=== PATIENT | female | born 1980 | race Caucasian/White ===

== ENCOUNTER 2018-09-08 10:50 | Emergency (ER) | payer OTHER ==
[2018-09-08 11:06] VITALS: BMI 27.1
[2018-09-08] MEDS ORDERED: SODIUM CHLORIDE 1,000 ML IV SCH (11:15)
--- NOTE | 2018-09-08 11:21 | PDOC ---
History of Present Illness - History of Present Illness Initial Comments: 09/08/18 12:56 The patient is a 37 year old female, with a significant past medical history , who presents to the emergency department with complaint of chest tightness, SOB , and tingling fingers at 10am while seated at her desk to do homework. She denies any preceding symptoms. She denies having any prior episodes like this. She states she had some nasal congestion this week. She denies any other symptoms. She denies recent travels. The patient denies headache and dizziness. The patient denies fever, chills, nausea, vomit, diarrhea and constipation. The patient denies dysuria, frequency , urgency and hematuria. Allergies: NDKA <Elizabeth Francisco - Last Filed: 09/08/18 12:56> - General History Source: Patient Exam Limitations: No Limitations <Elmira Cannon - Last Filed: 09/09/18 08:31> - General Chief Complaint: Shortness of Breath Stated Complaint: DIFFICULTY BREATHING Time Seen by Provider: 09/08/18 11:20 Past History <Elizabeth Francisco - Last Filed: 09/08/18 12:56> - Past Medical History COPD: No - Suicide/Smoking/Psychosocial Hx Smoking History: Never smoked Have you smoked in the past 12 months: No Number of Cigarettes Smoked Daily: 0 Information on smoking cessation initiated: No 'Breaking Loose' booklet given: 05/10/16 Hx Alcohol Use: No Drug/Substance Use Hx: No Substance Use Type: None <Elmira Cannon - Last Filed: 09/09/18 08:31> - Past Medical History Allergies/Adverse Reactions: Allergies Allergy/AdvReac Type Severity Reaction Status Date / Time No Known Allergies Allergy Verified 09/08/18 10:53 Home Medications: Ambulatory Orders Amoxicillin/Potassium Clav [Augmentin 875-125 Tablet] 1 each PO BID #20 tablet 05/10/16 Review of Systems - Review of Systems Able to Perform ROS?: Yes Comments:: 09/08/18 12:57 CONSTITUTIONAL: Absent: fever, no chills, no fatigue EYES: Absent: visual changes ENT: Absent: ear pain, no sore throat CARDIOVASCULAR: (+) chest tightness. Absent:no palpitations RESPIRATORY: (+) SOB. Absent: cough, GASTROINTESTINAL: Absent: abdominal pain, no nausea, no vomiting, no constipation, no diarrhea GENITOURINARY: Absent: dysuria, no frequency, no hematuria MUSCULOSKELETAL: Absent: back pain, no arthralgia, no myalgia SKIN: Absent: rash NEURO: (+) finger tingling. Absent: headache <Elizabeth Francisco - Last Filed: 09/08/18 12:56> *Physical Exam - Vital Signs Last Vital Signs Temp Pulse Resp BP Pulse Ox 98.0 F 135 H 16 166/92 100 09/08/18 10:57 09/08/18 10:57 09/08/18 10:57 09/08/18 10:57 09/08/18 10:57 - Physical Exam Comments: 09/08/18 12:57 GENERAL: The patient is in no acute distress. HEAD: Normal with no signs of trauma. EYES: PERRLA, EOMI, sclera anicteric, conjunctiva clear. ENT: Ears normal, nares patent, oropharynx clear without exudates. Moist mucous membranes. NECK: Normal range of motion, supple without lymphadenopathy, JVD, or masses. LUNGS: Breath sounds equal, clear to auscultation bilaterally. No wheezes, and no crackles. HEART:(+) tachycardic, regular rhythm, normal S1 and S2 without murmur, rub or gallop. ABDOMEN: Soft, nontender, normoactive bowel sounds. No guarding, no rebound. No masses palpable. EXTREMITIES: Normal range of motion, no edema. No clubbing or cyanosis. No erythema, or tenderness. NEUROLOGICAL: Cranial nerves II through XII grossly intact. Normal speech. No focal neurological deficits. MUSCULOSKELETAL: Back non-tender to palpation, no CVA tenderness SKIN: Warm, Dry, normal turgor, no rashes or lesions noted. <FanyAnthony medinaanda - Last Filed: 09/08/18 12:56> - Vital Signs Last Vital Signs Temp Pulse Resp BP Pulse Ox 98.0 F 135 H 16 166/92 100 09/08/18 10:57 09/08/18 10:57 09/08/18 10:57 09/08/18 10:57 09/08/18 10:57 <Elmira Cannon - Last Filed: 09/09/18 08:31> Moderate Sedation - Procedure Monitoring Vital Signs: Procedure Monitoring Vital Signs Temperature 98.0 F 09/08/18 10:57 Pulse Rate 135 H 09/08/18 10:57 Respiratory Rate 16 09/08/18 10:57 Blood Pressure 166/92 09/08/18 10:57 O2 Sat by Pulse Oximetry (%) 100 09/08/18 10:57 <Elizabeth Francisco - Last Filed: 09/08/18 12:56> - Procedure Monitoring Vital Signs: Procedure Monitoring Vital Signs Temperature 98.0 F 09/08/18 10:57 Pulse Rate 135 H 09/08/18 10:57 Respiratory Rate 16 09/08/18 10:57 Blood Pressure 166/92 09/08/18 10:57 O2 Sat by Pulse Oximetry (%) 100 09/08/18 10:57 <Elmira Cannon - Last Filed: 09/09/18 08:31> ED Treatment Course - LABORATORY CBC & Chemistry Diagram: 09/08/18 11:42 09/08/18 11:42 - ADDITIONAL ORDERS Additional order review: Laboratory Results 09/08/18 09/08/18 09/08/18 12:00 11:45 11:42 PT with INR INR D-Dimer 319 Sodium 140 Potassium 3.6 Chloride 107 Carbon Dioxide 24 Anion Gap 9 BUN 12 Creatinine 0.7 Creat Clearance w eGFR > 60 Random Glucose 107 H Calcium 9.3 Magnesium 2.1 Total Bilirubin 0.3 AST 18 ALT 41 Alkaline Phosphatase 91 Creatine Kinase 86 Troponin I < 0.02 B-Natriuretic Peptide 66.0 Total Protein 7.3 Albumin 4.3 TSH 1.57 Serum , Qual Negative 09/08/18 11:42 PT with INR 11.20 INR 0.95 D-Dimer Sodium Potassium Chloride Carbon Dioxide Anion Gap BUN Creatinine Creat Clearance w eGFR Random Glucose Calcium Magnesium Total Bilirubin AST ALT Alkaline Phosphatase Creatine Kinase Troponin I B-Natriuretic Peptide Total Protein Albumin TSH Serum , Qual 09/08/18 11:42 RBC 4.22 MCV 93.1 MCHC 35.4 RDW 12.9 MPV 7.8 Neutrophils % 73.0 Lymphocytes % 19.7 Monocytes % 6.3 Eosinophils % 0.5 Basophils % 0.5 - Medications Given in the ED: ED Medications Discontinued Medications Generic Name Dose Route Start Last Admin Trade Name Freq PRN Reason Stop Dose Admin Lorazepam 0.5 mg 09/08/18 12:23 09/08/18 12:36 Ativan - PO 02/05/19 12:24 0.5 mg ONCE ONE Administration <Elizabeth Francisco - Last Filed: 09/08/18 12:56> - LABORATORY CBC & Chemistry Diagram: 09/08/18 11:42 09/08/18 11:42 <Elmira Cannon - Last Filed: 09/09/18 08:31> Medical Decision Making - Medical Decision Making 09/08/18 12:52 37 yo F presenting with a complaint of chest pain/tightness, shortness of breath , facial numbness and hand numbness which began while sitting at her desk studying. no fevers or chills Recent sinus congestion (not treated) No recent travel, no leg swelling, no exogenous estrogens No prior episodes like this pt presents to the ER: Selected Entries 09/08/18 10:57 Temperature 98.0 F Pulse Rate 135 H Respiratory 16 Rate Blood Pressure 166/92 O2 Sat by Pulse 100 Oximetry (%) tachycardia improved upon my assessment - now HR 100s Symptoms present for 1 hr and 20 minutes and are slowly resolving Laboratory Tests 09/08/18 09/08/18 09/08/18 11:42 11:42 11:42 WBC 10.2 H Hgb 13.9 Hct 39.3 Plt Count 300 INR 0.95 D-Dimer Creatinine 0.7 Random Glucose 107 H Creatine Kinase 86 Troponin I < 0.02 B-Natriuretic Peptide 66.0 Serum , Qual 09/08/18 09/08/18 11:45 12:00 WBC Hgb Hct Plt Count INR D-Dimer 319 Creatinine Random Glucose Creatine Kinase Troponin I B-Natriuretic Peptide Serum , Qual Negative EKG:Twelve-lead EKG was performed and reviewed by me. There is normal sinus rhythm with a tachycardiac rate of 104 bpm. The axis is normal. The intervals are normal - pr: 140ms, QRS:nml, QTc:494ms. There are no ST or T wave abnormalities. 09/08/18 13:15 09/08/18 13:16 09/08/18 14:51 CT head - No ICH, No mass lesions, no acute infarct CTA chest- No evidence of PE Will discharge to home Follow up with PMD Return to the ER for any other concerns or complaints 09/08/18 15:59 Laboratory Tests 09/08/18 15:06 Creatine Kinase 74 Troponin I < 0.02 <Elmira Cannon - Last Filed: 09/09/18 08:31> *DC/Admit/Observation/Transfer - Attestations Scribe Attestion: 09/08/18 12:57 Documentation prepared by Elizabeth Francisco, acting as medical practice manager for Elmira Cannon MD <Elizabeth Francisco - Last Filed: 09/08/18 12:56> - Discharge Dispostion Decision to Admit order: No <Elmira Cannon - Last Filed: 09/09/18 08:31> Diagnosis at time of Disposition: Chest pain Qualifiers: Chest pain type: unspecified Qualified Code(s): R07.9 - Chest pain, unspecified - Discharge Dispostion Condition at time of disposition: Stable - Patient Instructions Printed Discharge Instructions: DI for Atypical Chest Pain, DI for Palpitations Additional Instructions: Thank you for coming in to the ER today Please be sure to follow up with your primary care physician Please review your results with your primary care physician Please be sure to return to the ER for any other concerns or complaints
[2018-09-08 11:55] LABS: BASO % 0.5 % (0-2.0); EOS % 0.5 % (0-4.5); HEMATOCRIT 39.3 % (32.4-45.2); HEMOGLOBIN 13.9 GM/dL (10.7-15.3); LYMPH % 19.7 % (8-40); MCH 32.9 pg (25.7-33.7); MCHC 35.4 g/dl (32.0-36.0); MEAN CELL VOLUME 93.1 fl (80-96); MEAN PLT VOLUME 7.8 fl (7.5-11.1); MONO % 6.3 % (3.8-10.2); PLATELET COUNT 300 K/MM3 (134-434); RBC 4.22 M/mm3 (3.60-5.2); RDW 12.9 % (11.6-15.6); WHITE BLOOD COUNT 10.2 K/mm3 (4.0-10.0)
[2018-09-08 12:14] LABS: INR 0.95 (0.83-1.09); PROTHROMBIN TIME (PATIENT) 11.2 SEC (9.7-13.0)
[2018-09-08 12:23] LABS: ALBUMIN 4.3 g/dl (3.4-5.0); ALK PHOS 91 U/L (45-117); ANION GAP 9 MMOL/L (8-16); BILIRUBIN,TOTAL 0.3 mg/dL (0.2-1); BLOOD UREA NITROGEN 12 mg/dL (7-18); CALCIUM 9.3 mg/dL (8.5-10.1); CHLORIDE 107 mmol/L (98-107); CO2 24 mmol/L (21-32); CREATININE 0.7 mg/dL (0.55-1.3); GLUCOSE,RANDOM 107 mg/dL (74-106); MAGNESIUM 2.1 mg/dL (1.8-2.4); POTASSIUM 3.6 mmol/L (3.5-5.1); SGOT/AST 18 U/L (15-37); SGPT/ALT 41 U/L (13-61); SODIUM 140 mmol/L (136-145); TOT PROT 7.3 g/dl (6.4-8.2)
[2018-09-08] MEDS ORDERED: LORazepam 0.5 MG TABLET PO ONE (12:23)
[2018-09-08] MEDS ORDERED: LORazepam 0.5 MG TABLET ONE (12:31)
[2018-09-08] MEDS ORDERED: ACETAMINOPHEN 325 MG TABLET (FP) PO ONE (12:48)
[2018-09-08] MEDS ORDERED: ACETAMINOPHEN 325 MG TABLET (FP) ONE (12:55)
--- NOTE | 2018-09-08 15:05 | EKG ---
Test Reason : Blood Pressure : / mmHG Vent. Rate : 104 BPM Atrial Rate : 104 BPM P-R Int : 140 ms QRS Dur : 096 ms QT Int : 376 ms P-R-T Axes : 053 072 024 degrees QTc Int : 494 ms SINUS TACHYCARDIA NONSPECIFIC ST AND T WAVE ABNORMALITY ABNORMAL ECG NO PREVIOUS ECGS AVAILABLE Confirmed by Robb Henao MD ([id number]) on 09/08/2018 3:04:34 PM Referred By: Confirmed By:Robb Henao MD
[2018-09-08 16:12] VITALS: BP 132/74; PULSE 85; TEMP 98.2
== END 2018-09-08 16:12 | disposition home or self-care (01) ==
LOC: JER 10:50
DX: R07.9 Chest pain, unspecified (principal)
CPT/HCPCS: 36415; 70450-TC; 71275-TC; 80053; 82550; 83735; 83880; 84443; 84484; 84703; 85025; 85379; 85610; 93005; 93010; 99282-25; J7030

== ENCOUNTER 2020-09-26 09:48 | Emergency (ER) | payer BC | END 2020-09-26 11:32 | disposition home or self-care (01) | LOC: JVIRT 09:48 | DX: R05 Cough (principal); Z20.822 Contact with and (suspected) exposure to COVID-19 | CPT/HCPCS: C9803; G2251-GT; U0003 ==

== ENCOUNTER 2020-11-08 09:59 | Emergency (ER) | payer BC ==
[2020-11-09 08:09] LABS: SARS-CoV-2 NAA Not Detected (Not Detected)
== END 2020-11-08 10:24 | disposition home or self-care (01) ==
LOC: JVIRT 09:59
DX: Z20.822 Contact with and (suspected) exposure to COVID-19 (principal)
CPT/HCPCS: C9803; G2251-GT; U0003; U0005